=== PATIENT | male | born 1990 | race Caucasian/White ===

== ENCOUNTER 2017-06-14 11:50 | Emergency (ER) | payer MEDICAID ==
[~2017-06-14] VITALS: Ht 175.3 cm; Wt 71.7 kg
[2017-06-14] MEDS ORDERED: ACYC-202 PO (12:21)
[2017-06-14 12:29] VITALS: BP 137/72
== END 2017-06-14 12:30 | disposition home or self-care (01) ==
LOC: ER 11:50
DX: S20.361A Insect bite (nonvenomous) of right front wall of thorax, initial encounter (principal); W57.XXXA Bitten or stung by nonvenomous insect and other nonvenomous arthropods, initial encounter; Y93.89 Activity, other specified; Y92.89 Other specified places as the place of occurrence of the external cause; Y99.8 Other external cause status
CPT/HCPCS: 99283

== ENCOUNTER 2021-11-03 16:43 | Emergency (ER) | payer MEDICAID ==
[~2021-11-03] VITALS: Ht 175.3 cm; Wt 81.8 kg
[2021-11-03 16:58] VITALS: BP 112/74
[2021-11-03] MEDS ORDERED: bacitracin 15gm ointment TP ONE (18:10)
[2021-11-03] MEDS ORDERED: cephalexin 500mg capsule PO ONE (18:10)
[2021-11-03] MEDS ORDERED: CEPH250T PO (19:01)
== END 2021-11-03 19:06 | disposition home or self-care (01) ==
LOC: ER 16:44
DX: S81.012A Laceration without foreign body, left knee, initial encounter (principal); S81.011A Laceration without foreign body, right knee, initial encounter; X50.0XXA Overexertion from strenuous movement or load, initial encounter; Y93.89 Activity, other specified; Y92.89 Other specified places as the place of occurrence of the external cause; Y99.8 Other external cause status
CPT/HCPCS: 99283